=== PATIENT | male | born 1950 | race Caucasian/White ===

== ENCOUNTER 2018-02-22 08:12 | Day surgery (SDC) | payer BC, MEDICARE, SELFPAY ==
--- NOTE | 2018-02-22 | HEM_PTH ---
PATIENT: JEFFREY CHAUDHARY LOC: [facility] [place] U#:[id number] AGE/SX: 67/M ROOM: RE02/22/[address]: Dr. Jennifer Arrieta MD : 1950 BED: DIS: 02/22/2018 SPEC #: [id number] RECD: 02/22/18 15:14 STATUS: JESSICA RETamir #: [id number] ASHLIE: 02/22/18 00:[address]: Jennifer Arrieta DEPT: SURGICAL PATHOLOGY RECD BY: Raúl Harris ENTERED: 02/22/18 15:14 SP TYPE: HEMORRHOID OTHR DR: Dr. Sera Morris MD Tissues: HEMORRHOIDS Procedures: Surgery Specimen Level III HEADER OPERATION: Hemorrhoidectomy PRE-OP DIAGNOSIS: Grade 3 hemorrhoids TISSUE SUBMITTED: Internal and external hemorrhoids MICROSCOPIC DIAGNOSIS Internal and external hemorrhoids: Pieces of squamous mucosa with dilated and congested blood vessels, consistent with hemorrhoids with focal thrombosis and recanalization. SJ:carlos 02/23/18 MICROSCOPIC DESCRIPTION Slides are reviewed. GROSS DESCRIPTION Received in fixative is one container labeled with the patient's name and designated internal and external hemorrhoids. The specimen consists of multiple variable sized pieces of huang mucosal tissue measuring in aggregate 3 x 2.5 x 0.3 cm. The largest piece is bisected. The entire specimen is submitted in one cassette. / KERMIT:carlos 02/22/18 TC:5 CPT: 51248
[2018-02-22 08:47] VITALS: BP 148/75; PULSE 60; RESP 18; TEMP 37; O2SAT 100; BMI 30.2
[2018-02-22] MEDS: Cefazolin 2 GM in 0.9% Normal Saline 100 ML IV (11:17)
[2018-02-22] MEDS: Lubricating Jelly 60 GM Tube 30 GM TOPICAL (11:40)
[2018-02-22] MEDS: Dibucaine 30 GM Tube 1 APPLIC (12:20)
[2018-02-22] MEDS: Bupiv/Epi 0.5% Mpf 30 ML Vial (12:20)
--- NOTE | 2018-02-22 12:31 | OP.PN_ITS ---
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
--- NOTE | 2018-02-22 12:32 | OP.PCM_ITS ---
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 Appropriate time out protocol was followed. He was then intubated by the anesthesia provider. He was then carefully placed in the prone derick-knife position with appropriate padding. Adhesive tape was applied to the buttocks to retract the buttocks laterally to aid in exposure. A sterile surgical skin prep was then done. Sterile surgical drapes were placed. The rectum was irrigated with a dilute betadyne solution. The skin and subcutaneous tissues all around the anal area was infiltrated (the perianal skin and mucosa) with lidocaine 1% with epinephrine. Gentle finger dilatation of the anal canal was done. An anal speculum was inserted into the anal canal. The area was inspected. Patient was noted to have grade 4 internal hemorrhoids extending to external hemorrhoids. The left lateral prolapsed hemorrhoid was grasped with an Allis clamp and retracted toward the center of the anal canal. A 2-0 chromic suture in a figure-eight manner was placed proximally, above the pedicle first to decrease blood loss. An elliptical incision with a 15 blade scalpel was then made from the external component of the hemorrhoid group to the proximal end of the clamp. The tissue was then excised the hemorrhoid with scissors. The internal sphincter muscle was carefully avoided in this dissection. Hemostasis beneath the mucosa was carefully controlled with electrocoagulation. The mucosa was then reapproximated radially using locking running suture with the chromic gut. The right lateral hemorrhoidal bundle was approached in the same fashion as above. A thrombin gel foam with dubicaine cream was rolled up and placed into the anal canal. Patient was then placed back in the supine position. He was extubated and brought to the Recovery Room in stable condition. - Complications none noted - Admit VTE Documentation VTE Present on Admission: Yes VTE Mechan Device Prophylaxis: SCD's
--- NOTE | 2018-02-22 12:34 | DCINST_ITS ---
Discharge Diet: No Restrictions Discharge Activity: Return to Normal Activity, May not drive while taking narcotic pain medications. Allergies/Adverse Reactions: Allergies No Known Allergies Allergy (Verified 02/21/18 16:05) Medications to take at Discharge Acyclovir [Zovirax] 400 mg PO DAILY 02/21/18 Atorvastatin Calcium [Lipitor] 20 mg PO QHS 02/21/18 Dasatinib [Sprycel] 100 mg PO DAILY 02/21/18 Iron Carbonyl [Feosol] 648 mg PO DAILYCM 02/21/18 Losartan Potassium [Cozaar] 25 mg PO DAILY 02/21/18 Primary Care Physician: eSra Morris MD [Primary Care Provider] - Test Results: Test results from this visit will be discussed in further detail at your follow- up appointment, if applicable. Please Follow Up With: Jennifer Arrieta MD - call When: to be seen in 2-3 weeks, please call office for date and time, thank you
[2018-02-22 12:41] VITALS: BP 148/75; BP 154/90; PULSE 62; RESP 16; TEMP 36.3; O2SAT 93
[2018-02-22 12:45] VITALS: BP 141/85; BP 148/75; PULSE 58; RESP 16; O2SAT 94
[2018-02-22 13:00] VITALS: BP 148/75; BP 164/84; PULSE 56; RESP 16; TEMP 36.6; O2SAT 98
[2018-02-22 15:00] VITALS: BP 148/75; BP 180/90; PULSE 75; RESP 16; TEMP 36.6; O2SAT 99
--- OUTSIDE RECORDS SUMMARY | 2018-04-10 03:21 | XMS RPT_ITS ---
:1950 Author Organization OHIP Care Team Providers Name Role Phone Jennifer Arrieta Attending Unavailable Jennifer Arrieta Referring Unavailable Lucas Barnett Primary Care Unavailable JENNIFER ARRIETA Admitting Unavailable JENNIFER ARRIETA Attending Unavailable Lucas Barnett Attending Unavailable Lucas Barnett Primary Care Unavailable Lucas Barnett Admitting Unavailable Lucas Barnett Attending Unavailable Lucas Barnett Primary Care Unavailable Lucas Barnett Primary Care Unavailable Gayla Scott Admitting Unavailable Gayla Scott Attending Unavailable Lucas Barnett Attending Unavailable Lucas Barnett Primary Care Unavailable Lucas Barnett Admitting Unavailable Lucas Barnett Attending Unavailable Lucas Barnett Primary Care Unavailable Lucas Barnett Admitting Unavailable JENNIFER ARRIETA Attending Unavailable LUCAS BARNETT Referring Unavailable JENNIFER ARRIETA Attending Unavailable LUCAS BARNETT Referring Unavailable JIMMY BORJAS (OD) Attending Unavailable JIMMY BORJAS (OD) Referring Unavailable OK MÉNDEZ Attending Unavailable OK MÉNDEZ Referring Unavailable OK MÉNDEZ Referring Unavailable JIMMY BORJAS (OD) Attending Unavailable PROBLEMS PROBLEMS DATE TYPE CONDITION / CODE ATTENDING STATUS SOURCE 02/22/2018 Unknown Z09 - Encounter Jennifer Arrieta Active [place] for follow-up Community examination after Hospital completed Repository treatment for conditions other than malignant neoplasm / Z09(ICD-10) 02/10/2018 Active Unspecified JENNIFER ARRIETA Active [facility] hemorrhoids / NEW Other [place] K64.9(ICD-10) Repository 10/14/2017 Active Unknown / OK MÉNDEZ Active [facility] UNK(Unknown) Main [place] Repository 09/26/2015 Active Chronic myeloid NA [facility] in remission / C92.11(ICD-10) PROCEDURES PROCEDURES No Procedure Records FoundRESULTS RESULTS OPERATIVE REPORT Observed: 02/25/2018 Status: F Source: [place] 5:48 PM [facility] REPOSITORY [facility] Medical Records Department [address] [place] [address] Operative Report 02/22/18 1231 MR#: [id number] Acct: [id number] Name: JEFFREY ARIAS Rep #: [id number] : 1950 67 From: Jennifer Arrieta MD PCP: Lucas Barnett MD Status: [place] [facility] [place] [facility] [place] of Operation Date of Procedure: 02/22/18 Pre-Operative Diagnosis: hemorrhoidal disease Post-Operative Diagnosis: same Surgery/Procedure Performed:: excisional hemorrhoidectomy - internal and external hemorrhoids Description of Surgical Findings:: grade 3-4 internal hemorrhoids with external hemorrhoidal tags woods manager: NOT,DEFINED Type of Anesthesia:: General Anesthesiologist: Pavan Salgado Specimen's removed: external and internal hemorrhoidal tissue - two bundles Estimated Blood Loss (mL): 10 ml Fluids Replaced: 1200 ml RL Description of Procedure: After informed consent was given, the patient was brought to the operating room and placed in the supine position. Appropriate time out protocol was followed. He was then intubated by the anesthesia provider. He was then carefully placed in the prone derick-knife position with appropriate padding. Adhesive tape was applied to the buttocks to retract the buttocks laterally to aid in exposure. A sterile surgical skin prep was then done. Sterile surgical drapes were placed. The rectum was irrigated with a dilute betadyne solution. The skin and subcutaneous tissues all around the anal area was infiltrated (the perianal skin and mucosa) with lidocaine 1% with epinephrine. Gentle finger dilatation of the anal canal was done. An anal speculum was inserted into the anal canal. The area was inspected. Patient was noted to have grade 4 internal hemorrhoids extending to external hemorrhoids. The left lateral prolapsed hemorrhoid was grasped with an Allis clamp and retracted toward the center of the anal canal. A 2-0 chromic suture in a figure-eight manner was placed proximally, above the pedicle first to decrease blood loss. An elliptical incision with a 15 blade scalpel was then made from the external component of the hemorrhoid group to the proximal end of the clamp. The tissue was then excised the hemorrhoid with scissors. The internal sphincter muscle was carefully avoided in this dissection. Hemostasis beneath the mucosa was carefully controlled with electrocoagulation. The mucosa was then reapproximated radially using locking running suture with the chromic gut. The right lateral hemorrhoidal bundle was approached in the same fashion as above. A thrombin gel foam with dubicaine cream was rolled up and placed into the anal canal. Patient was then placed back in the supine position. He was extubated and brought to the Recovery Room in stable condition. - Complications none noted - Admit VTE Documentation VTE Present on Admission: Yes VTE Mechan Device Prophylaxis: SCD's 02/25/18 174 <Electronically signed by Jennifer Arrieta MD> Date Jennifer Arrieta MD CC: Lucas Barnett MD; Jennifer Arrieta MD Signed DISCHARGE INSTRUCTION Observed: 02/25/2018 Status: F Source: [place] 5:31 PM [facility] REPOSITORY [facility] Medical Records Department [address] [place] [address] Instructions for Home/Discharge Instructions 02/22/18 1233 MR#: [id number] Acct: [id number] Name: JEFFREY ARIAS Rep #: [id number] : 1950 67 From: Jennifer Arrieta MD PCP: Lucas Barnett MD Status[place] [facility] [place] Diet: No Restrictions Discharge Activity: Return to Normal Activity, May not drive while taking narcotic pain medications. Allergies/Adverse Reactions: Allergies No Known Allergies Allergy (Verified 02/21/18 16:05) Medications to take at Discharge Acyclovir [Zovirax] 400 mg PO DAILY 02/21/18 Atorvastatin Calcium [Lipitor] 20 mg PO QHS 02/21/18 Dasatinib [Sprycel] 100 mg PO DAILY 02/21/18 Iron Carbonyl [Feosol] 648 mg PO DAILYCM 02/21/18 Losartan Potassium [Cozaar] 25 mg PO DAILY 02/21/18 Primary Care Physician: Lucas Barnett MD [Primary Care Provider] - Test Results: Test results from this visit will be discussed in further detail at your follow-up appointment, if applicable. Please Follow Up With: Jennifer Arrieta MD - call When: to be seen in 2-3 weeks, please call office for date and time, thank you 02/25/18 5144 <Electronically signed by Jennifer Arrieta MD> Date Jennifer Arrieta MD CC: Lucas Barnett MD HEMORRHOIDS Observed: 02/22/2018 Status: F Source: [place] 12:00 AM [facility] REPOSITORY Patient: JEFFREY ARIAS : 1950 (67/M) Acct Num: [id number] Phys: Jennifer Arrieta MD Unit Num: [id number] [place] [facility] Specimen: [id number] Received: 02/22/18 1514 Spec Type: HEMORRHOID TISSUES 1 TISSUES: HEMORRHOIDS GROSS DESCRIPTION Received in fixative is one container labeled with the patient's name and designated internal and external hemorrhoids. The specimen consists of multiple variable sized pieces of huang mucosal tissue measuring in aggregate 3 x 2.5 x 0.3 cm. The largest piece is bisected. The entire specimen is submitted in one cassette. / KERMIT:carlos 02/22/18 TC:5 CPT: 47962 HEADER OPERATION: Hemorrhoidectomy PRE-OP DIAGNOSIS: Grade 3 hemorrhoids TISSUE SUBMITTED: Internal and external hemorrhoids MICROSCOPIC DESCRIPTION Slides are reviewed. MICROSCOPIC DIAGNOSIS Internal and external hemorrhoids: Pieces of squamous mucosa with dilated and congested blood vessels, consistent with hemorrhoids with focal thrombosis and recanalization. SJ:carlos 02/23/18 Signed You Coronado 02/23/18 <signature on file> Performed By: #### PHEM #### [facility] [address] [place], [place] [address]willem [place], [address] HISTORY PHYSICAL Observed: 02/20/2018 Status: COMPLETED Source: [place] 6:38 PM [facility] REPOSITORY O ID: [id number] Author: Jennifer Arrieta Service: (none) Author Type: Physician Type: HANDP Filed: 02/20/2018 6:38 PM Note Text: Jeffrey Hancock Hugo García 1950 ? ? REFERRING PHYSICIAN: Lucas Barnett MD ? CHIEF COMPLAINT: Consult (Consult Hemorrhoids) ? HPI: The patient is a 67 year old male with a complaint of hemorrhoids. Symptoms are - bleeding with bowel movements, pain and itching in the area, protrusion of tissue/possible prolapse also, and painful bowel movements. Notes that sometimes stools are hard, also admits to straining with bowel movements. Had previous colonoscopy 3 years ago - essentially normal except for findings of hemorrhoidal disease. The patient has also a concern for anemia - hgb was 11 Denies previous hemorrhoidal procedures. ? ? PAST MEDICAL HISTORY Diagnosis Date - Anemia ? - CML (chronic myeloid leukemia) (HCC) ? - HTN (hypertension) ? - Kidney stones ? ? PAST SURGICAL HISTORY Procedure Laterality Date - COLONOSCOPY ? 12 yrs - CYSTOSCOPY ? ? - HERNIA REPAIR HX ? 1984 ? ? Current Outpatient Prescriptions: acyclovir (ZOVIRAX) 400 mg tablet Take 1 tablet by mouth once daily. SPRYCEL 100 mg tablet TAKE 1 TABLET DAILY atorvastatin (LIPITOR) 20 mg tablet Take 20 mg by mouth once daily. ferrous sulfate (FEROSUL) 325 mg (65 mg iron) tablet Take 1 tablet by mouth daily with breakfast. valsartan (DIOVAN) 80 mg tablet Take 80 mg by mouth once daily. acetaminophen (TYLENOL EX STR RAPID RELEASE) 500 mg tablet Take 500 mg by mouth every 8 hours as needed. ? ? ALLERGIES: Patient has no known allergies. ? PERSONAL HISTORY: Social History Marital status: Spouse name: Years of education: Number of children: Social History Main Topics Smoking status: Never Smoker Smokeless tobacco: Never Used Alcohol use: Yes Comment: Occasionally Drug use: No Sexual activity: Yes Partners with: Female ? FAMILY HISTORY Problem Relation Age of Onset - Alcohol/Drug Father ? - Cancer Father ? ? lung - Heart Father 69 ? Heart Attack - Hypertension Father ? - Diabetes Father ? - No Ocular Disease Father ? - Kidney Disease Brother ? - Hypertension Paternal Grandfather ? - Diabetes Mother ? - No Ocular Disease Mother ? ? ? REVIEW OF SYSTEMS: General - denies fevers Cardiovascular - denies chest pain Pulmonary - denies coughing up blood Gastrointestinal - as per HPI Neurological - denies seizures Genitourinary - denies blood in urine Hematological - denies spontaneous/prolonged bleeding Skin - denies nonhealing skin wounds Musculoskeletal - no new symptoms of joint/back pain Endocrine - denies diabetes Psychological ? denies hallucinations ? PHYSICAL EXAMINATION: General: The patient is 67 year old male, well nourished, well hydrated in no acute distress. The patient is oriented to time, place, and person. VITALS: Ht: 6' Wt: 240# Head ? Normocephalic. EOM intact with sclera clear and no icterus noted. Mouth with mucus membranes moist. Neck - supple with no jugular venous distention noted. Trachea is midline. Lungs ? clear to auscultation. Normal breath sounds. No rales/rhonchi/wheezing noted. No labored breathing noted, such as retractions. . Heart ? normal S1 and S2 auscultated. No rubs/clicks/murmurs noted. Regular rate. Abdomen ? soft and benign. Normal bowel sounds. No abdominal bruits noted. Difficult to determine if any masses or organomegaly due to body habitus. Extremities ? no pitting edema noted. Rectal ? normal perianal skin, external and internal hemorhoidal disease, normal sphincter tone, no masses noted in rectal vault Skin ? normal skin integrity. Neurological ? gait normal, no focal deficits noted Psych ? calm and appropriate ? IMPRESSION: hemorrhoidal disease, blood in stools, perianal pain ? PLAN: I have discussed the above with the patient and his who is present with him. I have offered options of the following: excisional hemorrhoidectomy versus internal hemorrhoidal banding versus continued observation. I have explained the procedures to the patient. I have counseled the patient as to the risks of the procedure, including but not limited to: infection, bleeding, injury to any blood vessels/nerves, scar tissue, continued pain, regrowth of hemorhroidal tissue due to disease (straining with bowel movements, constipation, etc.), wound infections, complications of anesthesia, etc. ? the patient understands. I have explained to the patient that hemorrhoidal surgery can result in significant postoperative pain and discomfort. I have explained that due to the disease itself, he can have recurrence of hemorrhoids. I have explained that external hemorrhoidectomy is not complete - because of circumferential disease - cannot risk circumferential stricture. I have recommended conservative measures - avoid straining with bowel movements, increased intake of water and fiber to decrease risk of hard stools, etc. The patient wishes to proceed.? I have answered all questions to the patient?s satisfaction and the patient has no further questions PROGRESS Observed: 02/16/2018 Status: COMPLETED Source: [place] 4:55 PM [facility] REPOSITORY HNO ID: [id number] Author: Jennifer Arrieta Service: (none) Author Type: Physician Type: Progress Notes Filed: 02/18/2018 3:19 PM Note Text: Jeffrey Arias 1950 REFERRING PHYSICIAN: Lucas Barnett MD CHIEF COMPLAINT: Consult (Consult Hemorrhoids) HPI: Mr. Arias is a 67 y/o WM who presents for further questions regarding his upcoming hemorrhoidectomy surgery. Wants to know if banding will be done Wants to know about pain meds Wants to know about bleeding Wants to know how long is surgery Wants to know about mineral oil Wants to know about diet after I have answered all his questions and he has no further questions. PAST MEDICAL HISTORY - Anemia - CML (chronic myeloid leukemia) (HCC) - HTN (hypertension) - Kidney stones PAST SURGICAL HISTORY - COLONOSCOPY 12 yrs - CYSTOSCOPY - HERNIA REPAIR HX 1984 Current Outpatient Prescriptions: acyclovir (ZOVIRAX) 400 mg tablet Take 1 tablet by mouth once daily. SPRYCEL 100 mg tablet TAKE 1 TABLET DAILY atorvastatin (LIPITOR) 20 mg tablet Take 20 mg by mouth once daily. ferrous sulfate (FEROSUL) 325 mg (65 mg iron) tablet Take 1 tablet by mouth daily with breakfast. valsartan (DIOVAN) 80 mg tablet Take 80 mg by mouth once daily. acetaminophen (TYLENOL EX STR RAPID RELEASE) 500 mg tablet Take 500 mg by mouth every 8 hours as needed. ALLERGIES: Patient has no known allergies. PERSONAL HISTORY: Social History Marital status: Spouse name: Years of education: Number of children: Social History Main Topics Smoking status: Never Smoker Smokeless tobacco: Never Used Alcohol use: Yes Comment: Occasionally Drug use: No Sexual activity: Yes Partners with: Female FAMILY HISTORY - Alcohol/Drug Father - Cancer Father lung - Heart Father 69 Heart Attack - Hypertension Father - Diabetes Father - No Ocular Disease Father - Kidney Disease Brother - Hypertension Paternal Grandfather - Diabetes Mother - No Ocular Disease Mother REVIEW OF SYSTEMS: General - denies fevers Cardiovascular - denies chest pain Pulmonary - denies coughing up blood Gastrointestinal - as per HPI Neurological - denies seizures Genitourinary - denies blood in urine Hematological - denies spontaneous/prolonged bleeding Skin - denies nonhealing skin wounds Musculoskeletal - no new symptoms of joint/back pain Endocrine - denies diabetes Psychological ? denies hallucinations PHYSICAL EXAMINATION: General: The patient is 67 year old male, well nourished, well hydrated in no acute distress. The patient is oriented to time, place, and person. VITALS: Ht: 6' Wt: 240# Head ? Normocephalic. Neck - supple with no jugular venous distention noted. Trachea is midline. Lungs ? no labored breathing noted, such as retractions. . Psych ? calm and appropriate IMPRESSION: hemorrhoidal disease, blood in stools, perianal pain PLAN: I have discussed the above with the patient and his who is present with him. I have answered all their questions and they have no further questions. Patient scheduled for surgery on February 21. The patient wishes to proceed with excisional hemorrhoidectomy. I have explained the risks of surgery including but not limited to: infection, bleeding, scar tissue, postoperative pain, persistence of external hemorrhoidal tags, recurrence of hemorrhoidal tissue, etc. - he understands. He agrees to proceed. CNOV Observed: 02/16/2018 Status: COMPLETED Source: [place] 4:00 PM [facility] REPOSITORY Office Visit (GENSWS) JEFFREY ARIAS JR. ([id number]) 1950 Cris Date Time Provider Department 02/16/18 4:00 PM JENNIFER ARRIETA During your visit today, we recorded the following information about you: Jennifer Arrieta MD 02/18/2018 3:19 PM Signed Jeffrey Arias Jr. 1950 REFERRING PHYSICIAN: Lucas Barnett MD CHIEF COMPLAINT: Consult (Consult Hemorrhoids) HPI: Mr. Arias is a 67 y/o WM who presents for further questions regarding his upcoming hemorrhoidectomy surgery. Wants to know if banding will be done Wants to know about pain meds Wants to know about bleeding Wants to know how long is surgery Wants to know about mineral oil Wants to know about diet after I have answered all his questions and he has no further questions. PAST MEDICAL HISTORY - Anemia - CML (chronic myeloid leukemia) (HCC) - HTN (hypertension) - Kidney stones PAST SURGICAL HISTORY - COLONOSCOPY 12 yrs - CYSTOSCOPY - HERNIA REPAIR HX 1984 Current Outpatient Prescriptions: acyclovir (ZOVIRAX) 400 mg tablet Take 1 tablet by mouth once daily. SPRYCEL 100 mg tablet TAKE 1 TABLET DAILY atorvastatin (LIPITOR) 20 mg tablet Take 20 mg by mouth once daily. ferrous sulfate (FEROSUL) 325 mg (65 mg iron) tablet Take 1 tablet by mouth daily with breakfast. valsartan (DIOVAN) 80 mg tablet Take 80 mg by mouth once daily. acetaminophen (TYLENOL EX STR RAPID RELEASE) 500 mg tablet Take 500 mg by mouth every 8 hours as needed. ALLERGIES: Patient has no known allergies. PERSONAL HISTORY: Social History Marital status: Spouse name: Years of education: Number of children: Social History Main Topics Smoking status: Never Smoker Smokeless tobacco: Never Used Alcohol use: Yes Comment: Occasionally Drug use: No Sexual activity: Yes Partners with: Female FAMILY HISTORY - Alcohol/Drug Father - Cancer Father lung - Heart Father 69 Heart Attack - Hypertension Father - Diabetes Father - No Ocular Disease Father - Kidney Disease Brother - Hypertension Paternal Grandfather - Diabetes Mother - No Ocular Disease Mother REVIEW OF SYSTEMS: General - denies fevers Cardiovascular - denies chest pain Pulmonary - denies coughing up blood Gastrointestinal - as per HPI Neurological - denies seizures Genitourinary - denies blood in urine Hematological - denies spontaneous/prolonged bleeding Skin - denies nonhealing skin wounds Musculoskeletal - no new symptoms of joint/back pain Endocrine - denies diabetes Psychological ? denies hallucinations PHYSICAL EXAMINATION: General: The patient is 67 year old male, well nourished, well hydrated in no acute distress. The patient is oriented to time, place, and person. VITALS: Ht: 6' Wt: 240# Head ? Normocephalic. Neck - supple with no jugular venous distention noted. Trachea is midline. Lungs ? no labored breathing noted, such as retractions. . Psych ? calm and appropriate IMPRESSION: hemorrhoidal disease, blood in stools, perianal pain PLAN: I have discussed the above with the patient and his who is present with him. I have answered all their questions and they have no further questions. Patient scheduled for surgery on February 21. The patient wishes to proceed with excisional hemorrhoidectomy. I have explained the risks of surgery including but not limited to: infection, bleeding, scar tissue, postoperative pain, persistence of external hemorrhoidal tags, recurrence of hemorrhoidal tissue, etc. - he understands. He agrees to proceed. Referring Provider: LUCAS BARNETT [[id number]] Allergies As of Date: 02/16/2018 (No Known Allergies) Date Reviewed: 02/16/2018 Reviewed by: Ambika Lockhart LPN - Fully Assessed Reason for Visit: questions regarding surgery [Other] Primary Visit Diagnosis:Grade III hemorrhoids [K64.2] Other Visit Diagnosis:External hemorrhoid [K64.4] Prescriptions as of 02/16/2018 Sig: ACYCLOVIR 400 MG TABLET Take 1 tablet by mouth once d* SPRYCEL 100 MG TABLET TAKE 1 TABLET DAILY ATORVASTATIN 20 MG TABLET Take 20 mg by mouth once nael* FERROUS SULFATE 325 MG (65 MG* Take 1 tablet by mouth daily * VALSARTAN 80 MG TABLET Take 80 mg by mouth once nael* ACETAMINOPHEN 500 MG TABLET Take 500 mg by mouth every 8 * Problem List As Of Date 02/16/2018 Noted Resolved CML (chronic myelocytic leukemia) (HCC) [C92.10]INVALID FOR* Leukocytosis, unspecified [D72.829] INVALID FOR*12/13/2013 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 Encounter Status:Closed by MD JENNIFER ARRIETA on 02/18/18 HOSP Observed: 02/10/2018 Status: COMPLETED Source: [place] 12:00 AM [facility] REPOSITORY Patient:Jeffrey Arias Jr. MRN: <[id number]> Height:5' 10.276(1.785 m) Weight:No patient weight recorded within the last 30 days. Outpatient Medications as of 02/21/18: acetaminophen (TYLENOL EX STR RAPID RELEASE) 500 mg tablet acyclovir (ZOVIRAX) 400 mg tablet atorvastatin (LIPITOR) 20 mg tablet ferrous sulfate (FEROSUL) 325 mg (65 mg iron) tablet SPRYCEL 100 mg tablet valsartan (DIOVAN) 80 mg tablet Admission/Clinic Administered Medications as of 02/21/18: Patient has no admission medications. 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 1950 REFERRING PHYSICIAN: Lucas Barnett MD CHIEF COMPLAINT: Consult (Consult Hemorrhoids) HPI: Mr. Arias is a 67 y/o WM who presents for further questions regarding his upcoming hemorrhoidectomy surgery. Wants to know if banding will be done Wants to know about pain meds Wants to know about bleeding Wants to know how long is surgery Wants to know about mineral oil Wants to know about diet after I have answered all his questions and he has no further questions. PAST MEDICAL HISTORY - Anemia - CML (chronic myeloid leukemia) (HCC) - HTN (hypertension) - Kidney stones PAST SURGICAL HISTORY - COLONOSCOPY 14 yrs - CYSTOSCOPY - HERNIA REPAIR HX 1984 Current Outpatient Prescriptions: acyclovir (ZOVIRAX) 400 mg tablet Take 1 tablet by mouth once daily. SPRYCEL 100 mg tablet TAKE 1 TABLET DAILY atorvastatin (LIPITOR) 20 mg tablet Take 20 mg by mouth once daily. ferrous sulfate (FEROSUL) 325 mg (65 mg iron) tablet Take 1 tablet by mouth daily with breakfast. valsartan (DIOVAN) 80 mg tablet Take 80 mg by mouth once daily. acetaminophen (TYLENOL EX STR RAPID RELEASE) 500 mg tablet Take 500 mg by mouth every 8 hours as needed. ALLERGIES: Patient has no known allergies. PERSONAL HISTORY: Social History Marital status: Spouse name: Years of education: Number of children: Social History Main Topics Smoking status: Never Smoker Smokeless tobacco: Never Used Alcohol use: Yes Comment: Occasionally Drug use: No Sexual activity: Yes Partners with: Female FAMILY HISTORY - Alcohol/Drug Father - Cancer Father lung - Heart Father 69 Heart Attack - Hypertension Father - Diabetes Father - No Ocular Disease Father - Kidney Disease Brother - Hypertension Paternal Grandfather - Diabetes Mother - No Ocular Disease Mother REVIEW OF SYSTEMS: General - denies fevers Cardiovascular - denies chest pain Pulmonary - denies coughing up blood Gastrointestinal - as per HPI Neurological - denies seizures Genitourinary - denies blood in urine Hematological - denies spontaneous/prolonged bleeding Skin - denies nonhealing skin wounds Musculoskeletal - no new symptoms of joint/back pain Endocrine - denies diabetes Psychological ? denies hallucinations PHYSICAL EXAMINATION: General: The patient is 67 year old male, well nourished, well hydrated in no acute distress. The patient is oriented to time, place, and person. VITALS: Ht: 6' Wt: 240# Head ? Normocephalic. Neck - supple with no jugular venous distention noted. Trachea is midline. Lungs ? no labored breathing noted, such as retractions. . Psych ? calm and appropriate IMPRESSION: hemorrhoidal disease, blood in stools, perianal pain PLAN: I have discussed the above with the patient and his who is present with him. I have answered all their questions and they have no further questions. Patient scheduled for surgery on February 21. The patient wishes to proceed with excisional hemorrhoidectomy. I have explained the risks of surgery including but not limited to: infection, bleeding, scar tissue, postoperative pain, persistence of external hemorrhoidal tags, recurrence of hemorrhoidal tissue, etc. - he understands. He agrees to proceed. Progress Notes ([facility]): Alta Zaida 02/14/2018 4:21 PM Signed Patient is having a procedure with Dr Arrieta on 02/21/2018 and is questioning if he needs to stop his Sprycel. Please advise spouse at home number. Ok Méndez MD 02/14/2018 4:29 PM Signed YES. Stop Sprycel a week before surgery, resume after surgery. MD Tracy Bello LPN, GRICEL 02/14/2018 4:45 PM Signed notified to stop sprycel 1 week prior to surgery, and resume after surgery .Tracy Guerra LPN PROGRESS Observed: 02/03/2018 Status: COMPLETED Source: [place] 11:49 AM [facility] REPOSITORY HNO ID: [id number] Author: Jennifer Arrieta Service: (none) Author Type: Physician Type: Progress Notes Filed: 02/03/2018 3:14 PM Note Text: Jeffrey Arias Jr. 1950 REFERRING PHYSICIAN: Lucas Barnett MD CHIEF COMPLAINT: Consult (Consult Hemorrhoids) HPI: The patient is a 67 year old male with a complaint of hemorrhoids. Symptoms are - bleeding with bowel movements, pain and itching in the area, protrusion of tissue/possible prolapse also, and painful bowel movements. Notes that sometimes stools are hard, also admits to straining with bowel movements. Had previous colonoscopy 3 years ago - essentially normal except for findings of hemorrhoidal disease. The patient has also a concern for anemia - hgb was 11 Denies previous hemorrhoidal procedures. PAST MEDICAL HISTORY Diagnosis Date - Anemia - CML (chronic myeloid leukemia) (HCC) - HTN (hypertension) - Kidney stones PAST SURGICAL HISTORY Procedure Laterality Date - COLONOSCOPY 14 yrs - CYSTOSCOPY - HERNIA REPAIR HX 1984 Current Outpatient Prescriptions: acyclovir (ZOVIRAX) 400 mg tablet Take 1 tablet by mouth once daily. SPRYCEL 100 mg tablet TAKE 1 TABLET DAILY atorvastatin (LIPITOR) 20 mg tablet Take 20 mg by mouth once daily. ferrous sulfate (FEROSUL) 325 mg (65 mg iron) tablet Take 1 tablet by mouth daily with breakfast. valsartan (DIOVAN) 80 mg tablet Take 80 mg by mouth once daily. acetaminophen (TYLENOL EX STR RAPID RELEASE) 500 mg tablet Take 500 mg by mouth every 8 hours as needed. ALLERGIES: Patient has no known allergies. PERSONAL HISTORY: Social History Marital status: Spouse name: Years of education: Number of children: Social History Main Topics Smoking status: Never Smoker Smokeless tobacco: Never Used Alcohol use: Yes Comment: Occasionally Drug use: No Sexual activity: Yes Partners with: Female FAMILY HISTORY Problem Relation Age of Onset - Alcohol/Drug Father - Cancer Father lung - Heart Father 69 Heart Attack - Hypertension Father - Diabetes Father - No Ocular Disease Father - Kidney Disease Brother - Hypertension Paternal Grandfather - Diabetes Mother - No Ocular Disease Mother REVIEW OF SYSTEMS: General - denies fevers Cardiovascular - denies chest pain Pulmonary - denies coughing up blood Gastrointestinal - as per HPI Neurological - denies seizures Genitourinary - denies blood in urine Hematological - denies spontaneous/prolonged bleeding Skin - denies nonhealing skin wounds Musculoskeletal - no new symptoms of joint/back pain Endocrine - denies diabetes Psychological ? denies hallucinations PHYSICAL EXAMINATION: General: The patient is 67 year old male, well nourished, well hydrated in no acute distress. The patient is oriented to time, place, and person. VITALS: Ht: 6' Wt: 240# Head ? Normocephalic. EOM intact with sclera clear and no icterus noted. Mouth with mucus membranes moist. Neck - supple with no jugular venous distention noted. Trachea is midline. Lungs ? clear to auscultation. Normal breath sounds. No rales/rhonchi/wheezing noted. No labored breathing noted, such as retractions. . Heart ? normal S1 and S2 auscultated. No rubs/clicks/murmurs noted. Regular rate. Abdomen ? soft and benign. Normal bowel sounds. No abdominal bruits noted. Difficult to determine if any masses or organomegaly due to body habitus. Extremities ? no pitting edema noted. Rectal ? normal perianal skin, external and internal hemorhoidal disease, normal sphincter tone, no masses noted in rectal vault Skin ? normal skin integrity. Neurological ? gait normal, no focal deficits noted Psych ? calm and appropriate Assessment IMPRESSION: hemorrhoidal disease, blood in stools, perianal pain PLAN: I have discussed the above with the patient and his who is present with him. I have offered options of the following: excisional hemorrhoidectomy versus internal hemorrhoidal banding versus continued observation. I have explained the procedures to the patient. I have counseled the patient as to the risks of the procedure, including but not limited to: infection, bleeding, injury to any blood vessels/nerves, scar tissue, continued pain, regrowth of hemorhroidal tissue due to disease (straining with bowel movements, constipation, etc.), wound infections, complications of anesthesia, etc. ? the patient understands. I have explained to the patient that hemorrhoidal surgery can result in significant postoperative pain and discomfort. I have explained that due to the disease itself, he can have recurrence of hemorrhoids. I have explained that external hemorrhoidectomy is not complete - because of circumferential disease - cannot risk circumferential stricture. I have recommended conservative measures - avoid straining with bowel movements, increased intake of water and fiber to decrease risk of hard stools, etc. The patient wishes to think about his options. I have answered all questions to the patient?s satisfaction and the patient has no further questions. . Diagnoses: (K62.89) Perianal pain (primary encounter diagnosis) (K62.5) Hemorrhage of anus and rectum (K64.2) Grade III hemorrhoids Return to Clinic: The patient is instructed to follow-up with me as per needed. Jennifer Arrieta MD CNOV Observed: 02/03/2018 Status: COMPLETED Source: [place] 9:30 AM [facility] REPOSITORY Office Visit (SWS) JEFFREY ARIAS JR. ([id number]) 1950 Cris Date Time Provider Department 02/03/18 9:30 AM JENNIFER ARRIETA During your visit today, we recorded the following information about you: Jennifer Arrieta MD 02/03/2018 3:14 PM Signed Jeffrey Arias 1950 REFERRING PHYSICIAN: Lucas Barnett MD CHIEF COMPLAINT: Consult (Consult Hemorrhoids) HPI: The patient is a 67 year old male with a complaint of hemorrhoids. Symptoms are - bleeding with bowel movements, pain and itching in the area, protrusion of tissue/possible prolapse also, and painful bowel movements. Notes that sometimes stools are hard, also admits to straining with bowel movements. Had previous colonoscopy 3 years ago - essentially normal except for findings of hemorrhoidal disease. The patient has also a concern for anemia - hgb was 11 Denies previous hemorrhoidal procedures. PAST MEDICAL HISTORY Diagnosis Date - Anemia - CML (chronic myeloid leukemia) (HCC) - HTN (hypertension) - Kidney stones PAST SURGICAL HISTORY Procedure Laterality Date - COLONOSCOPY 12 yrs - CYSTOSCOPY - HERNIA REPAIR HX 1984 Current Outpatient Prescriptions: acyclovir (ZOVIRAX) 400 mg tablet Take 1 tablet by mouth once daily. SPRYCEL 100 mg tablet TAKE 1 TABLET DAILY atorvastatin (LIPITOR) 20 mg tablet Take 20 mg by mouth once daily. ferrous sulfate (FEROSUL) 325 mg (65 mg iron) tablet Take 1 tablet by mouth daily with breakfast. valsartan (DIOVAN) 80 mg tablet Take 80 mg by mouth once daily. acetaminophen (TYLENOL EX STR RAPID RELEASE) 500 mg tablet Take 500 mg by mouth every 8 hours as needed. ALLERGIES: Patient has no known allergies. PERSONAL HISTORY: Social History Marital status: Spouse name: Years of education: Number of children: Social History Main Topics Smoking status: Never Smoker Smokeless tobacco: Never Used Alcohol use: Yes Comment: Occasionally Drug use: No Sexual activity: Yes Partners with: Female FAMILY HISTORY Problem Relation Age of Onset - Alcohol/Drug Father - Cancer Father lung - Heart Father 69 Heart Attack - Hypertension Father - Diabetes Father - No Ocular Disease Father - Kidney Disease Brother - Hypertension Paternal Grandfather - Diabetes Mother - No Ocular Disease Mother REVIEW OF SYSTEMS: General - denies fevers Cardiovascular - denies chest pain Pulmonary - denies coughing up blood Gastrointestinal - as per HPI Neurological - denies seizures Genitourinary - denies blood in urine Hematological - denies spontaneous/prolonged bleeding Skin - denies nonhealing skin wounds Musculoskeletal - no new symptoms of joint/back pain Endocrine - denies diabetes Psychological ? denies hallucinations PHYSICAL EXAMINATION: General: The patient is 67 year old male, well nourished, well hydrated in no acute distress. The patient is oriented to time, place, and person. VITALS: Ht: 6' Wt: 240# Head ? Normocephalic. EOM intact with sclera clear and no icterus noted. Mouth with mucus membranes moist. Neck - supple with no jugular venous distention noted. Trachea is midline. Lungs ? clear to auscultation. Normal breath sounds. No rales/rhonchi/wheezing noted. No labored breathing noted, such as retractions. . Heart ? normal S1 and S2 auscultated. No rubs/clicks/murmurs noted. Regular rate. Abdomen ? soft and benign. Normal bowel sounds. No abdominal bruits noted. Difficult to determine if any masses or organomegaly due to body habitus. Extremities ? no pitting edema noted. Rectal ? normal perianal skin, external and internal hemorhoidal disease, normal sphincter tone, no masses noted in rectal vault Skin ? normal skin integrity. Neurological ? gait normal, no focal deficits noted Psych ? calm and appropriate Assessment IMPRESSION: hemorrhoidal disease, blood in stools, perianal pain PLAN: I have discussed the above with the patient and his who is present with him. I have offered options of the following: excisional hemorrhoidectomy versus internal hemorrhoidal banding versus continued observation. I have explained the procedures to the patient. I have counseled the patient as to the risks of the procedure, including but not limited to: infection, bleeding, injury to any blood vessels/nerves, scar tissue, continued pain, regrowth of hemorhroidal tissue due to disease (straining with bowel movements, constipation, etc.), wound infections, complications of anesthesia, etc. ? the patient understands. I have explained to the patient that hemorrhoidal surgery can result in significant postoperative pain and discomfort. I have explained that due to the disease itself, he can have recurrence of hemorrhoids. I have explained that external hemorrhoidectomy is not complete - because of circumferential disease - cannot risk circumferential stricture. I have recommended conservative measures - avoid straining with bowel movements, increased intake of water and fiber to decrease risk of hard stools, etc. The patient wishes to think about his options. I have answered all questions to the patient?s satisfaction and the patient has no further questions. . Diagnoses: (K62.89) Perianal pain (primary encounter diagnosis) (K62.5) Hemorrhage of anus and rectum (K64.2) Grade III hemorrhoids Return to Clinic: The patient is instructed to follow-up with me as per needed. Jennifer Arrieta MD Referring Provider: LUCAS BARNETT [[id number]] Allergies As of Date: 02/03/2018 (No Known Allergies) Date Reviewed: 02/03/2018 Reviewed by: Jennifer Arrieta - Fully Assessed Reason for Visit: Consult [173] Cmt: Consult Hemorrhoids Primary Visit Diagnosis:Perianal pain [K62.89] Other Visit Diagnoses:Hemorrhage of anus and rectum [K62.5] Grade III hemorrhoids [K64.2] Prescriptions as of 02/03/2018 Sig: ACYCLOVIR 400 MG TABLET Take 1 tablet by mouth once d* SPRYCEL 100 MG TABLET TAKE 1 TABLET DAILY ATORVASTATIN 20 MG TABLET Take 20 mg by mouth once nael* FERROUS SULFATE 325 MG (65 MG* Take 1 tablet by mouth daily * VALSARTAN 80 MG TABLET Take 80 mg by mouth once nael* ACETAMINOPHEN 500 MG TABLET Take 500 mg by mouth every 8 * Problem List As Of Date 02/03/2018 Noted Resolved CML (chronic myelocytic leukemia) (HCC) [C92.10]INVALID FOR* Leukocytosis, unspecified [D72.829] INVALID FOR*12/13/2013 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] INVALID FOR* Combined forms of age-related cataract, bilater*INVALID FOR* Other vitreous opacities - Both Eyes [H43.399] INVALID FOR*04/21/2016 Vitreous floaters of both eyes [H43.393] INVALID FOR* History of herpes simplex keratoconjunctivitis *INVALID FOR* CML in remission (HCC) [C92.11] INVALID FOR* Anemia [D64.9] INVALID FOR* Encounter Status:Closed by MD JENNIFER ARRIETA on 02/03/18 PROGRESS Observed: 12/30/2017 Status: COMPLETED Source: [place] 10:36 AM [facility] REPOSITORY HNO ID: [id number] Author: Jimmy Borjas Service: (none) Author Type: ENCHILADA MAKER Type: Progress Notes Filed: 12/30/2017 10:38 AM Note Text: ASSESSMENT/PLAN: 1. History of herpes simplex keratoconjunctivitis - ICD9: V12.49, ICD10: Z86.69 (primary diagnosis) Continue: Current Ophthalmic Meds acyclovir (ZOVIRAX) 400 mg tablet (Taking) Take 1 tablet by mouth once daily. 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 Vitreous floaters of both eyes - ICD9: 379.24, ICD10: H43.393 Stable / Observe 3. Combined forms of age-related cataract, bilateral - ICD9: 366.19, ICD10: H25.813 Not visually significant / Observe Jimmy Borjas, ZAIN I have confirmed and edited as necessary the relevant ophthalmic history, review of systems, surgical history, and ophthalmological examination findings as obtained by the ophthalmic technical staff. I have seen and examined Jeffrey Karissa Arias Jr.. I have discussed the examination findings, diagnosis, and treatment options with Jeffrey Karissa Arias Jr. and/or his family. I have also reviewed and agree with the assessment and plan as stated above and agree with all its relevant components. I gave the patient the opportunity to ask questions about the findings, diagnosis, and treatment options. UA COMPLETE Collected: 12/25/2017 Status: F Source: [facility] 11:14 AM [facility] REPOSITORY TYPE CODE TESTS RESULT OUT OF RANGE REFERENCE UNITS LAB [id number]( Yellow LOINC) Normal UA Color Yellow LAB 17486754( Clear LOINC) Normal UA Clarity Clear LAB 34430585( Negative LOINC) Normal UA Glucose Negative LAB 15308848( Negative LOINC) Normal UA Bili Negative LAB 04544541( Negative LOINC) Normal UA Ketones Negative LAB 39633625( 1.003-1.030 LOINC) Normal UA Spec Grav 1.008 LAB 79590844( 4.6-8.0 LOINC) Normal UA pH 6.0 LAB 81723177( Negative LOINC) Normal UA Protein Negative LAB 80398704( mg/dL LOINC) Normal UA Urobilinogen Negative LAB 43941450( Negative LOINC) Normal UA Nitrite Negative LAB 73833009( Negative LOINC) Normal UA Blood Negative LAB 60088676( Negative LOINC) Normal UA Leuk Est Negative LAB 20421762( 0-3 /HPF LOINC) Normal UA RBC 0-3 LAB 75162396( 0-5 /HPF LOINC) Normal UA WBC 0-5 LAB 19941153( Trace /LPF LOINC) UA Mucous Abnormal Trace Performed By: #### [id number] #### ROGERS Urinalysis Automated Subsection [address] [place] [address] PT Collected: 12/25/2017 Status: F Source: [facility] 9:48 AM [facility] TYPE CODE TESTS RESULT OUT OF RANGE REFERENCE UNITS LAB [id number](LO 1.0-1.2 INC) Normal INR 1.1 Result Comment: INR Recommended Therapeuptic Ranges: Prophylaxis/treatment of DVT and PE?2.0-3.0 Prevention of systemic embolism?.2.0-3.0 Mechanical prosthetic values?2.5-3.5 CRITICAL VALUES?.>4.0 LAB 43910484(LOINC) 11.6-14.6 second(s) Normal 13.3 PT Performed By: #### [id number] #### ROGERS Hematology Automated Subsection [address] [place] [address] PTT Collected: 12/25/2017 Status: F Source: [facility] 9:48 AM [facility] TYPE CODE TESTS RESULT OUT OF RANGE REFERENCE UNITS LAB [id number](LO 23.2-36.4 second(s) INC) Normal PTT 26.2 Performed By: #### [id number] #### ROGERS Hematology Automated [address]section [address] [place] [address] PTT CONTROL RATIO Collected: 12/25/2017 Status: F Source: [facility] 9:48 AM [facility] REPOSITORY Order Comment: Order added by Discern Expert. TYPE CODE TESTS RESULT OUT OF RANGE REFERENCE UNITS LAB [id number](LO 0.8-1.2 ratio INC) Normal PTT Ratio 0.9 Performed By: #### [id number] #### ROGERS Hematology Automated [address]section [address] [place] [address] LACTIC ACID Collected: 12/25/2017 Status: F Source: [facility] 9:48 AM [facility] REPOSITORY TYPE CODE TESTS RESULT OUT OF RANGE REFERENCE UNITS LAB [id number](LO 0.4-2.0 mmol/L INC) Normal Lactic Acid 0.7 Lvl Performed By: #### [id number] #### ROGERS [employer]ink [address] [place] [address] BMP Collected: 12/25/2017 Status: F Source: [facility] 9:48 AM [facility] REPOSITORY TYPE CODE TESTS RESULT OUT OF RANGE REFERENCE UNITS LAB [id number](L 70-99 mg/dL OINC) High Glucose Lvl 106 LAB 93175007(L 6-23 mg/dL OINC) BUN Normal 11 LAB 7442047(LO 0.6-1.3 mg/dL INC) Normal Creatinine 0.9 LAB 42529186(L 5.4-30.0 ratio OINC) Normal BUN/Creat Ratio 12.2 LAB 59224363(L 8.6-10.3 mg/dL OINC) Calcium Normal Lvl 8.8 LAB 68118031(L 136-145 mEq/L OINC) Sodium Normal Lvl 141 LAB 57607303(L 3.5-5.3 mEq/L OINC) Normal Potassium Lvl 3.6 LAB 06328754(L 98-107 mEq/L OINC) High Chloride 109 LAB 44305143(L 21.0-32.0 mEq/L OINC) CO2 Normal 28.0 LAB 07079291(L 6-16 mEq/L OINC) AGAP Normal 8 Performed By: #### [id number] #### ROGERS [employer]ink [address] [place] [address] HEP FUNC PANEL Collected: 12/25/2017 Status: F Source: [facility] 9:48 AM [facility] REPOSITORY TYPE CODE TESTS RESULT OUT OF RANGE REFERENCE UNITS LAB [id number](L 10-52 Int._Unit/L OINC) Normal ALT 16 LAB 33741188(L 9-39 Int._Unit/L OINC) Normal AST 14 LAB 25404760(L 3.4-5.0 G/DL OINC) Normal Albumin Lvl 3.8 LAB 61008345(L 2.0-4.0 G/DL OINC) Normal Globulin 2.0 LAB 63615507(L 1.1-1.9 ratio OINC) Normal A/G Ratio 1.8 LAB 08182969(L 33-136 OINC) Normal Alk Phos 46 LAB 63217677(L .00-.30 mg/dL OINC) Normal Bili Direct .10 LAB 23456443(L OINC) Normal Bili Indirect 0.5 Result Comment: No established ranges available for the Indirect Biliruben. LAB 47099392(LOINC) 0.0-1.2 mg/dL Normal Bili Total 0.6 LAB 84684037(LOINC) 6.4-8.2 gm/dL Low Total Protein 5.9 Performed By: #### [id number] #### ROGERS [facility] [place] [address] EGFR Collected: 12/25/2017 Status: F Source: [facility] 9:48 AM [facility] REPOSITORY Order Comment: Order added by Discern Expert. TYPE CODE TESTS RESULT OUT OF RANGE REFERENCE UNITS LAB 04386502(LO mL/min/1.73 INC) m2 Normal eGFR >60 LAB 88894324(LO mL/min/1.73 INC) m2 Normal eGFR AA >60 Performed By: #### [id number] #### ROGERS [employer] [address] [place] [address] TROPONIN-I Collected: 12/25/2017 Status: F Source: [facility] 9:48 AM [facility] REPOSITORY TYPE CODE TESTS RESULT OUT OF RANGE REFERENCE UNITS LAB 55953819(LO .00-.03 ng/mL INC) Normal .01 Troponin-I Performed By: #### [id number] #### ROGERS [facility] [place] [address] LIPASE LEVEL Collected: 12/25/2017 Status: F Source: [facility] 9:48 AM [facility] REPOSITORY TYPE CODE TESTS RESULT OUT OF RANGE REFERENCE UNITS LAB 72600461(LO 9-82 Int._Unit/L INC) Normal Lipase Lvl 58 Performed By: #### [id number] #### ROGERS [employer] [address] [place] [address] CBC W/ AUTO DIFF Collected: 12/25/2017 Status: F Source: [facility] 9:48 AM [facility] REPOSITORY TYPE CODE TESTS RESULT OUT OF RANGE REFERENCE UNITS LAB 11207606(L 3.6-11.0 E3/mcL OINC) Low WBC 2.3 LAB [id number](L 3.90-6.10 E6/mcL OINC) Normal RBC 4.28 LAB 13654575(L 13.5-18.0 G/DL OINC) Low Hgb 12.7 LAB 41577928(L 42.0-52.0 % OINC) Low Hct 37.9 LAB 05214376(L 11.5-14.5 % OINC) High RDW 16.8 LAB 55930678(L 27.0-31.0 pg OINC) Normal MCH 29.6 LAB 73190652(L 33.0-37.0 G/DL OINC) Normal MCHC 33.5 LAB 44241314(L 78.0-100.0 fL OINC) Normal MCV 88.4 LAB 23871067(L 7.4-11.0 fL OINC) Normal MPV 8.7 LAB [id number](L 130-400 E3/mcL OINC) Normal Platelet 134 Performed By: #### [id number] #### ROGERS [facility] [place] [address] MANUAL DIFF Collected: 12/25/2017 Status: F Source: [facility] 9:48 AM [facility] REPOSITORY Order Comment: Order Added by Discern Expert. TYPE CODE TESTS RESULT OUT OF REFERENCE UNITS RANGE LAB [id number](L 37-75 % OINC) Segs Man Normal 68 LAB [id number](L 0-1 OINC) Band Man Normal 1 LAB [id number](L 14-48 % OINC) Lymph Man Normal 25 LAB 29109045(L 1-11 % OINC) Monocyte Man Normal 3 LAB 26202452(L 0-5 % OINC) Eos Man Normal 3 LAB 53185111(L 0-1 % OINC) Basophil Man Normal 0 LAB 75195775(L OINC) Poikilocytosis Normal 1+ LAB 38660704(L OINC) Anisocytosis Normal 1+ Performed By: #### [id number] #### ROGERS [facility] [place] [address] ZZPLT MORPH Collected: 12/25/2017 Status: F Source: [facility] 9:48 AM [facility] REPOSITORY TYPE CODE TESTS RESULT OUT OF RANGE REFERENCE UNITS LAB [id number](L OINC) Normal Platelet DECREASED Estimate LAB 51772809(L OINC) Normal Platelet Morph NORMAL Performed By: #### [id number] #### ROGERS [employer] [address] [id number] .MANUAL ABS Collected: 12/25/2017 Status: F Source: [facility] 9:48 AM [facility] REPOSITORY Order Comment: Order Added by Discern Expert. TYPE CODE TESTS RESULT OUT OF RANGE REFERENCE UNITS LAB [id number](L 1.4-6.5 10x3/ OINC) Normal Segs Abs Man 1.6 LAB [id number](L 1.2-3.4 10x3/ OINC) Low Lymph Abs Man 0.6 LAB [id number](L 0.0-0.7 10x3/ OINC) Normal [place] Abs Man 0.1 LAB 73492426(L 0.0-0.5 10x3/ OINC) Normal Eos Abs Man 0.1 LAB 72942191(L 0.0-0.2 10x3/ OINC) Normal Basophil Abs 0.0 Man Performed By: #### [id number] #### ROGERS [employer] [address] [place] [address] PROGRESS Observed: 10/14/2017 Status: COMPLETED Source: [place] 10:10 AM [facility] REPOSITORY O ID: [id number] Author: Ok Méndez Service: (none) Author Type: Physician Type: Progress Notes Filed: 10/17/2017 7:47 AM Note Text: PATIENT NAME: Jeffrey Arias. CLINIC NO: [id number]. ATTENDING PHYSICIAN: Ok Méndez MD. ?? DATE OF SERVICE: 10/14/2017? DIAGNOSIS: Chronic myelogenous leukemia, in CR with major molecular response ?? HPI: This is a 67-year-old gentleman with history of hypertension and chronic anemia who presented with atypical chest pain AND leukocytosis. ?? Bone marrow biopsy in January 2014 confirm the diagnosis of CML. His cytogenetic was positive for t( 9,22 ) translocation. ?? BONE MARROW, ASPIRATE SMEARS, CORE BIOPSY AND CLOT SECTION WITH PERIPHERAL BLOOD SMEAR: - MARKEDLY HYPERCELLULAR BONE MARROW (GREATER THAN 90%) WITH GRANULOCYTIC HYPERPLASIA AND LEFT-SHIFT MORPHOLOGICALLY CONSISTENT WITH A MYELOPROLIFERATIVE NEOPLASM. - DECREASED STAINABLE IRON. ?? Current treatment:?Spyrcel 100 mg once daily. ?? interim history: ?Patient is tolerating treatment. He denies chest pain or shortness of breath or palpitation. His blood pressure is normal today. No nausea or vomiting. No fluid retention or edema. Patient denied rash or diarrhea or muscle pain. He has no fever, chills or night sweat. He has no early satiety or pruritus. He has occasional rectal bleeding from hemorrhoids, but no melanoma abdominal pain or bloating. his last colonoscopy was 3 years ago. ?? REVIEW OF SYSTEMS: CONSTITUTIONAL: No fevers, chills, nightsweats, unintended weight loss HEENT: Denies frequent or severe heaches, nasal congestion/sinus symptoms, problematic allergy problems. EYES: No diplopia or blurry vision. CARDIOVASCULAR: No chest pain, dyspnea, palpitations, orthopnea, PND, ankle edema. PULM: No dyspnea, unexplained cough. GI: No dysphagia/odynophagia, problematic reflux, constipation, diarrhea, changes in stool habits, hematochezia, melena. : No new urinary complaints, including dysuria, gross hematuria or pyuria. NEURO: No new balance problems, peripheral weakness/paresthesias or numbness of concern. MUSC-SKEL: No new joint pain, swelling, or erythema. PSY: No concerns regarding depression, anxiety or panic. INTEGUMENTARY: No new skin changes (rash, new or changing mole, new growth) ?? PHYSICAL EXAMINATION: A 66-year-old gentleman in no acute distress performance status 100% BP 137/74 Pulse 79 Temp (Src) 98.6 (Oral) Wt 240 lb 8 oz (109.1kg) HEENT: Head is normocephalic, atraumatic. Sclerae white, conjunctivae pink. PEERL. EOMs are intact. Oropharynx is benign. LYMPHATICS: There is no palpable adenopathy in the neck, supraclavicular region, axillae, or groin. LUNGS: Lungs are clear to percussion and auscultation. HEART: Heart is normal with grade 2/6 systolic murmur?murmurs?left sternal border, no gallops, or rubs. ABDOMEN: Obese, Soft and nontender without organomegaly. No masses can be palpated. EXTREMITIES: Are without edema. NEUROLOGIC: Exam is physiologic ?? LABORATORY DATA: Component Latest Ref Rng AND Units 10/06/2017 WBC, [place] 3.70 - 11.00 k/uL 2.08 (L) RBC, [place] 4.20 - 6.00 m/uL 4.21 Hemoglobin, [place] 13.0 - 17.0 g/dL 11.1 (L) Hematocrit, [place] 39.0 - 51.0 % 35.9 (L) MCV, [place] 80.0 - 100.0 fL 85.3 MCH, [place] 26.0 - 34.0 pg 26.4 MCHC, [place] 30.5 - 36.0 g/dL 30.9 RDW, [place] 11.5 - 15.0 % 17.2 (H) Platelet Cnt, [place] 150 - 400 k/uL 151 MPV, [place] 9.0 - 12.7 fL 10.5 Absol Gran Count 1.45 - 7.50 k/uL 1.19 (L) Component Latest Ref Rng AND Units 10/06/2017 Protein, Total 6.3 - 8.0 g/dL 6.4 Albumin 3.9 - 4.9 g/dL 4.1 Calcium 8.5 - 10.2 mg/dL 9.3 Bilirubin, Total 0.2 - 1.3 mg/dL 0.3 Alkaline Phosphatase 36 - 108 U/L 44 AST 14 - 40 U/L 24 Glucose 74 - 99 mg/dL 114 (H) BUN 9 - 24 mg/dL 13 Creatinine 0.73 - 1.22 mg/dL 1.08 Sodium 136 - 144 mmol/L 143 Potassium 3.7 - 5.1 mmol/L 4.0 Chloride 97 - 105 mmol/L 99 CO2 22 - 30 mmol/L 25 Anion Gap 9 - 18 mmol/L 19 (H) ALT 10 - 54 U/L 19 eGFR- >60 eGFR-All Other Races . >60 LD 135 - 225 U/L 203 Uric Acid 4.0 - 8.1 mg/dL 5.2 ? Quantitative Result (BCRPCR) CCM (NOTE) Comment: Normalized copy number (%BCRABL/ABL):0.06 International Scale (%IS BCRABL/ABL):0.03 Interpretation (BCRPCR) CCM p210 BCR/ABL transcripts are detected and are quantified at <0.1% on the International Scale. This result indicates the presence of a major molecular response. Comment: (REF: Leukemia 2009, 23:1957-63.) ? ASSESSMENT:?67-year-old gentleman with chronic myeloid leukemia,?CR with major molecular response. ??Patient is asymptomatic despite mild anemia and Leukopenia. He is?tolerating Spyrcel with no side effects. ?? PLAN: Continue Spyrcel 100 mg once daily for treatment of CML. Start labn-hop-sfyxomm iron to ferrous sulfate 325mg once daily for anemia. Repeat CBC, CMP, LDH, Uric acid,and quantitative BCR/ABL OV in 6 months.?? Ok Méndez MD. ? Cc: Dr. Lucas Barnett CNOVSP Observed: 10/14/2017 Status: COMPLETED Source: [place] 9:40 AM [facility] REPOSITORY Visit (SP) Office (HEMAWS) JEFFREY ARIAS JR. ([id number]) 1950 M Date Time Provider Department 10/14/17 9:40 AM OK MÉNDEZ During your visit today, we recorded the following information about you: Temperature Pulse Blood pressure Weight 98.6 degrees 79/minute 137/74 109.1 kg Ivy Zendejas LPN 10/14/2017 10:05 AM Signed Est patient. Six month office visit. Discuss recent labs. Ivy Méndez MD 10/14/2017 10:09 AM Signed Start OTC iron once daily for anemia Ok Méndez MD 10/17/2017 7:47 AM Signed PATIENT NAME: Jeffrey Arias. CLINIC NO: [id number]. ATTENDING PHYSICIAN: Ok Méndez MD. ?? DATE OF SERVICE: 10/14/2017? DIAGNOSIS: Chronic myelogenous leukemia, in CR with major molecular response ?? HPI: This is a 67-year-old gentleman with history of hypertension and chronic anemia who presented with atypical chest pain AND leukocytosis. ?? Bone marrow biopsy in January 2014 confirm the diagnosis of CML. His cytogenetic was positive for t( 9,22 ) translocation. ?? BONE MARROW, ASPIRATE SMEARS, CORE BIOPSY AND CLOT SECTION WITH PERIPHERAL BLOOD SMEAR: - MARKEDLY HYPERCELLULAR BONE MARROW (GREATER THAN 90%) WITH GRANULOCYTIC HYPERPLASIA AND LEFT-SHIFT MORPHOLOGICALLY CONSISTENT WITH A MYELOPROLIFERATIVE NEOPLASM. - DECREASED STAINABLE IRON. ?? Current treatment:?Spyrcel 100 mg once daily. ?? interim history: ?Patient is tolerating treatment. He denies chest pain or shortness of breath or palpitation. His blood pressure is normal today. No nausea or vomiting. No fluid retention or edema. Patient denied rash or diarrhea or muscle pain. He has no fever, chills or night sweat. He has no early satiety or pruritus. He has occasional rectal bleeding from hemorrhoids, but no melanoma abdominal pain or bloating. his last colonoscopy was 3 years ago. ?? REVIEW OF SYSTEMS: CONSTITUTIONAL: No fevers, chills, nightsweats, unintended weight loss HEENT: Denies frequent or severe heaches, nasal congestion/sinus symptoms, problematic allergy problems. EYES: No diplopia or blurry vision. CARDIOVASCULAR: No chest pain, dyspnea, palpitations, orthopnea, PND, ankle edema. PULM: No dyspnea, unexplained cough. GI: No dysphagia/odynophagia, problematic reflux, constipation, diarrhea, changes in stool habits, hematochezia, melena. : No new urinary complaints, including dysuria, gross hematuria or pyuria. NEURO: No new balance problems, peripheral weakness/paresthesias or numbness of concern. MUSC-SKEL: No new joint pain, swelling, or erythema. PSY: No concerns regarding depression, anxiety or panic. INTEGUMENTARY: No new skin changes (rash, new or changing mole, new growth) ?? PHYSICAL EXAMINATION: A 66-year-old gentleman in no acute distress performance status 100% BP 137/74 Pulse 79 Temp (Src) 98.6 (Oral) Wt 240 lb 8 oz (109.1kg) HEENT: Head is normocephalic, atraumatic. Sclerae white, conjunctivae pink. PEERL. EOMs are intact. Oropharynx is benign. LYMPHATICS: There is no palpable adenopathy in the neck, supraclavicular region, axillae, or groin. LUNGS: Lungs are clear to percussion and auscultation. HEART: Heart is normal with grade 2/6 systolic murmur?murmurs?left sternal border, no gallops, or rubs. ABDOMEN: Obese, Soft and nontender without organomegaly. No masses can be palpated. EXTREMITIES: Are without edema. NEUROLOGIC: Exam is physiologic ?? LABORATORY DATA: Component Latest Ref Rng AND Units 10/06/2017 WBC, [place] 3.70 - 11.00 k/uL 2.08 (L) RBC, [place] 4.20 - 6.00 m/uL 4.21 Hemoglobin, [place] 13.0 - 17.0 g/dL 11.1 (L) Hematocrit, [place] 39.0 - 51.0 % 35.9 (L) MCV, [place] 80.0 - 100.0 fL 85.3 MCH, [place] 26.0 - 34.0 pg 26.4 MCHC, [place] 30.5 - 36.0 g/dL 30.9 RDW, [place] 11.5 - 15.0 % 17.2 (H) Platelet Cnt, [place] 150 - 400 k/uL 151 MPV, [place] 9.0 - 12.7 fL 10.5 Absol Gran Count 1.45 - 7.50 k/uL 1.19 (L) Component Latest Ref Rng AND Units 10/06/2017 Protein, Total 6.3 - 8.0 g/dL 6.4 Albumin 3.9 - 4.9 g/dL 4.1 Calcium 8.5 - 10.2 mg/dL 9.3 Bilirubin, Total 0.2 - 1.3 mg/dL 0.3 Alkaline Phosphatase 36 - 108 U/L 44 AST 14 - 40 U/L 24 Glucose 74 - 99 mg/dL 114 (H) BUN 9 - 24 mg/dL 13 Creatinine 0.73 - 1.22 mg/dL 1.08 Sodium 136 - 144 mmol/L 143 Potassium 3.7 - 5.1 mmol/L 4.0 Chloride 97 - 105 mmol/L 99 CO2 22 - 30 mmol/L 25 Anion Gap 9 - 18 mmol/L 19 (H) ALT 10 - 54 U/L 19 eGFR- >60 eGFR-All Other Races . >60 LD 135 - 225 U/L 203 Uric Acid 4.0 - 8.1 mg/dL 5.2 ? Quantitative Result (BCRPCR) CCM (NOTE) Comment: Normalized copy number (%BCRABL/ABL):0.06 International Scale (%IS BCRABL/ABL):0.03 Interpretation (BCRPCR) CCM p210 BCR/ABL transcripts are detected and are quantified at <0.1% on the International Scale. This result indicates the presence of a major molecular response. Comment: (REF: Leukemia 2009, 23:9967-02.) ? ASSESSMENT:?67-year-old gentleman with chronic myeloid leukemia,?CR with major molecular response. ??Patient is asymptomatic despite mild anemia and Leukopenia. He is?tolerating Spyrcel with no side effects. ?? PLAN: Continue Spyrcel 100 mg once daily for treatment of CML. Start uctq-yuv-epbilqu iron to ferrous sulfate 325mg once daily for anemia. Repeat CBC, CMP, LDH, Uric acid,and quantitative BCR/ABL OV in 6 months.?? Ok Méndez MD. ? Cc: Dr. Lucas Barnett Referring Provider: OK MÉNDEZ [[id number]] Allergies As of Date: 10/14/2017 (No Known Allergies) Date Reviewed: 10/14/2017 Reviewed by: Ivy Zendejas LPN - Fully Assessed Reason for Visit: Established Patient [175] Primary Visit Diagnosis:CML in remission (HCC) [C92.11] Other Visit Diagnosis:Anemia, unspecified type [D64.9] Order(s):ferrous sulfate (FEROSUL) 325 mg (65 mg iron) tabletTake 1 tablet by mouth daily with breakfast.Disp: 100 tabletRfl: 1 Level of Service: EST PATIENT VISIT LEVEL 3 [[id number]] Disposition: Return in about 6 months (around 04/16/2018). 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 Six month office visit. Discuss recent labs. Ivy Zendejas LPN Encounter Status:Closed by OK MÉNDEZ MD on 10/17/17 BCR/ABL P210 QUANT Collected: 10/06/2017 Status: F Source: [place] 9:43 AM [facility] REPOSITORY TYPE CODE TESTS RESULT OUT OF REFERENCE UNITS RANGE LAB MRDTYP Blood Specimen Type BCRPCR LAB MRDRES p210 BCRPCR Qual BCR/ABL Result transcripts are detected. (See interpretation.) LAB MRDRQT (NOTE) BCRPCR Quant Result Result Comment: Normalized copy number (%BCRABL/ABL):0.06 International Scale (%IS BCRABL/ABL):0.03 LAB MRDINT p210 BCR/ABL Interp for transcripts are BCRPCR detected and are quantified at <0.1% on the International Scale. This result indicates the presence of a major molecular response. Result Comment: (REF: Leukemia 2008, 23:1957-63.) LAB MRDMET This Methodology sample was analyzed for (BCRPCR) the presence of p210 (b2a2 or b3a2) BCR/ABL transcripts resulting from a t(9:22)(q34:q11) translocation, using cDNA prepared from RNA by reverse transcriptase polymerase chain reaction (RTPCR). Result Comment: Real time RTPCR quantification of BCR/ABL and ABL transcripts was performed in duplicate to calculate a mean normalized copy number percentage ratio and results were converted to the Int ernational Scale using reference standards ([employer], Madeleine, Marielle). This assay successfully detects BCR/ABL transcripts in RNA extracted from one neoplastic cell suspended in 100,000 buffy coat cells from a normal individual. This assay will not detect BCR/ABL transcrip ts produced by unusual variant breakpoints, which are found in <5% of patients of chronic myeloid leukemia. This test was developed and its performance characteristics determined by [facility]van Delac[facility] [place] ([facility]). It has not been cleared or approved by the FDA. -[facility] is regulated under CLIA as qualified to perform high-complexity testing. This test is used for clinical purposes. It should not be regarded as investigational or for research. LAB MRDREV Reviewed by Reviewed by (BCRPCR) Clyde Pickens M.D., Ph.D ([id number]) Performed By: #### BCRPCR #### [place] [id number] [place] [address] THERESE ABS GR + CBC Collected: 10/06/2017 Status: F Source: [place] 9:42 [facility] REPOSITORY TYPE CODE TESTS RESULT OUT OF REFERENCE UNITS RANGE LAB WWBC 3.70-11.00 k/uL Low [place] WBC 2.08 LAB WRBC 4.20-6.00 m/uL [place] RBC 4.21 LAB WHGB 13.0-17.0 g/dL Low [place] Hemoglobin 11.1 LAB WHCT 39.0-51.0 % Low [place] Hematocrit 35.9 LAB WMCV 80.0-100.0 fL [place] MCV 85.3 LAB WMCH 26.0-34.0 pg [place] MCH 26.4 LAB WMCHC 30.5-36.0 g/dL [place] MCHC 30.9 LAB WRDW 11.5-15.0 % [place] High RDW 17.2 LAB WPLT 150-400 k/uL [place] Platelet Cnt 151 LAB WMPV 9.0-12.7 fL [place] MPV 10.5 Result Comment: Test performed at: [facility], [address] [place] [address]. LAB ABGRAN 1.45-7.50 k/uL Low Absol 1.19 Gran Count COMP METABOLIC PANEL Collected: 10/06/2017 Status: F Source: [place] 9:42 [facility] REPOSITORY TYPE CODE TESTS RESULT OUT OF REFERENCE UNITS RANGE LAB TP 6.3-8.0 g/dL Protein, Total 6.4 LAB ALB 3.9-4.9 g/dL Albumin 4.1 LAB CA 8.5-10.2 mg/dL Calcium, Total 9.3 LAB TBIL 0.2-1.3 mg/dL Bilirubin, Total 0.3 LAB ALKP 36-108 U/L Alkaline Phosphatase 44 LAB AST 14-40 U/L AST 24 LAB GLU 74-99 mg/dL Glucose High 114 Result Comment: The [place] [employer] (ADA) provides guidance for cutoff values for fasting glucose and random glucose. The ADA defines fasting as no caloric intake for at least 8 hours. Fas ting plasma glucose results between 100 to 125 mg/dL indicate increased risk for diabetes (prediabetes). Fasting plasma glucose results greater than or equal to 126 mg/dL meet the criteria for diagnosis of diabetes. In the absence of unequivocal hyperglycemia, results should be confirmed by repeat testing. In a patient with classic symptoms of hyperglycemia or hyperglycemic crisis, random plasma glucose results greater than or equal to 200 mg/dL meet the criteria for diagnosis of diabetes. Reference: Standards of Medical Care in Diabetes 2016, [place] [employer] Association. Diabetes Care. 2016.39(Suppl 1). LAB BUN 9-24 mg/dL BUN 13 LAB CRET 0.73-1.22 mg/dL Creatinine 1.08 LAB NA 136-144 mmol/L Sodium 143 LAB K 3.7-5.1 mmol/L Potassium 4.0 LAB CL 97-105 mmol/L Chloride 99 LAB CO2 22-30 mmol/L CO2 25 LAB AGAP 9-18 mmol/L Anion Gap High 19 LAB ALT 10-54 U/L ALT 19 LAB GFRAA eGFR- Amer. >60 LAB GFRNAA . eGFR-All Other Races >60 Result Comment: eGFR (Estimated GFR) Units of measure: mL/min/1.73 meters squared eGFR is derived from the reexpressed MDRD Study equation using the following parameters: serum creatinine, age, gender and race. The creatinine assay has been calibrated to be traceable to IDMS. An eGFR <60 mL/min/1.73m2 for >3 months is consistent with chronic kidney disease. Refer to KDOQI guidelines for clinical interpretation. In patients with unstable renal function, e.g. those with acute kidney injury, the eGFR may not accurately reflect actual GFR. Performed By: #### CMP, URIC, LD6 #### [facility] [email or web address] [address] [place], [place] [address] URIC ACID Collected: 10/06/2017 Status: F Source: [place] 9:42 AM [facility] REPOSITORY TYPE CODE TESTS RESULT OUT OF RANGE REFERENCE UNITS LAB URIC 4.0-8.1 mg/dL Uric Acid 5.2 Performed By: #### CMP, URIC, LD6 #### [facility] [address] [place], [place] [address] LD Collected: 10/06/2017 Status: F Source: [facility] 9:42 AM [facility] REPOSITORY TYPE CODE TESTS RESULT OUT OF RANGE REFERENCE UNITS LAB LD 135-225 U/L LD 203 Performed By: #### CMP, URIC, LD6 #### [facility] [address] [place] [id number] CNCO Observed: 07/14/2017 Status: COMPLETED Source: [place] 12:00 AM [facility] REPOSITORY Letter Text [address] [place] [address] [phone] 07/14/2017 Jeffrey Arias [address] [facility] [address] Dear Jacy Arias: Due to a change in the provider's schedule, it has been necessary to reschedule your appointment. Enclosed please find a new appointment reminder that will replace the one previously sent to you. If this appointment is not convenient for you, please contact our office at [phone]. Thank you for choosing the [facility] as your Healthcare Provider. Sincerely, Appointment Office CMP Collected: 07/06/2017 Status: F Source: [facility] 7:01 AM [facility] REPOSITORY TYPE CODE TESTS RESULT OUT OF RANGE REFERENCE UNITS LAB [id number](L 70-99 mg/dL OINC) Glucose Normal Lvl 99 LAB 09710813(L 8.4-10.2 mg/dL OINC) Calcium Normal Lvl 8.9 LAB 37958180(L 136-145 mEq/L OINC) Sodium Normal Lvl 139 LAB 99646172(L 3.5-5.1 mEq/L OINC) Normal Potassium Lvl 3.7 LAB 69335993(L 98-107 mEq/L OINC) Chloride Normal 106 LAB 89976520(L 24.0-30.0 mEq/L OINC) CO2 Normal 25.7 LAB 01928295(L 7-18 mg/dL OINC) High BUN 20 LAB 1391946(LO 0.6-1.3 mg/dL INC) Normal Creatinine 1.1 LAB 71507699(L 42-121 Int._Unit/ OINC) L Alk Phos Normal 43 LAB 53489495(L 0.2-1.0 mg/dL OINC) Bili Normal Total 0.5 LAB 16587642(L 3.2-5.0 G/DL OINC) Albumin Normal Lvl 4.0 LAB 57521493(L 6.4-8.3 G/DL OINC) Total Normal Protein 6.9 LAB 54965029(L 10-40 Int._Unit/ OINC) L ALT Normal 18 LAB 73015137(L 10-42 Int._Unit/ OINC) L AST Normal 19 LAB 66655888(L 5.4-30.0 ratio OINC) Normal BUN/Creat Ratio 18.2 LAB 27675654(L 2.0-4.0 G/DL OINC) Globulin Normal 2.9 LAB 82578443(L 1.1-1.9 ratio OINC) A/G Normal Ratio 1.4 Performed By: #### [id number] #### [place] [address] CBC W/ AUTO DIFF Collected: 07/06/2017 Status: F Source: [facility] 7:01 AM [facility] REPOSITORY TYPE CODE TESTS RESULT OUT OF RANGE REFERENCE UNITS LAB 83827417(L 3.6-11.0 E3/mcL OINC) Low WBC 2.6 LAB 59245018(L 3.90-6.10 E6/mcL OINC) Normal RBC 4.14 LAB 73358245(L 13.5-18.0 G/DL OINC) Low Hgb 10.9 LAB 04218822(L 42.0-52.0 % OINC) Low Hct 33.5 LAB 65584100(L 11.5-14.5 % OINC) High RDW 15.9 LAB 35345024(L 27.0-31.0 pg OINC) Low MCH 26.4 LAB 58255146(L 33.0-37.0 G/DL OINC) Low MCHC 32.6 LAB 55734689(L 78.0-100.0 fL OINC) Normal MCV 80.9 LAB 20488940(L 7.4-11.0 fL OINC) Normal MPV 8.6 LAB 08604904(L 130-400 E3/mcL OINC) Normal Platelet 198 Performed By: #### [id number] #### [facility] [place] [address] MANUAL DIFF Collected: 07/06/2017 Status: F Source: [facility] 7:01 [facility] REPOSITORY Order Comment: Order Added by Discern Expert. TYPE CODE TESTS RESULT OUT OF REFERENCE UNITS RANGE LAB 58875229( 37-75 % LOINC) Segs Man 56 Normal LAB 93778846( 14-48 % LOINC) Lymph Man 35 Normal LAB 08371735( 1-11 % LOINC) Monocyte 6 Normal Man LAB 13696611( 0-5 % LOINC) Eos Man 2 Normal LAB 78363251( 0-1 % LOINC) Basophil 1 Normal Man LAB 13199850( LOINC) RBC Morph SEE Normal MORPHOLOGY LAB 27601181( LOINC) 1+ Normal Anisocytosis Performed By: #### [id number] #### [facility] [place] [address] ZZPLT MORPH Collected: 07/06/2017 Status: F Source: [facility] 7:01 [facility] TYPE CODE TESTS RESULT OUT OF RANGE REFERENCE UNITS LAB 76712826(L OINC) Normal Platelet NORMAL Estimate LAB 05293491(L OINC) Normal Platelet Morph ENLARGED Performed By: #### [id number] #### [facility] [place] [address] .MANUAL ABS Collected: 07/06/2017 Status: F Source: [facility] 7:01 [facility] REPOSITORY TYPE CODE TESTS RESULT OUT OF RANGE REFERENCE UNITS LAB 19985232(L 1.4-6.5 10x3/ OINC) Normal Segs Abs Man 1.5 LAB 13831570(L 1.2-3.4 10x3/ OINC) Low Lymph Abs Man 0.9 LAB 88428802(L 0.0-0.7 10x3/ OINC) Normal [place] Abs Man 0.2 LAB 79518645(L 0.0-0.5 10x3/ OINC) Normal Eos Abs Man 0.1 LAB 47812423(L 0.0-0.2 10x3/ OINC) Normal Basophil Abs 0.0 Man Performed By: #### [id number] #### [facility] [place] [address] EGFR Collected: 07/06/2017 Status: F Source: [facility] 7:01 [facility] REPOSITORY Order Comment: Order added by Discern Expert. TYPE CODE TESTS RESULT OUT OF RANGE REFERENCE UNITS LAB 77362026(LO mL/min/1.73 INC) m2 Normal eGFR >60 LAB 19968236(LO mL/min/1.73 INC) m2 Normal eGFR AA >60 Performed By: #### [id number] #### [place] [facility] [address] [place] [address] LIPID PROFILE Collected: 07/06/2017 Status: F Source: [facility] [address] [place] [address] REPOSITORY TYPE CODE TESTS RESULT OUT OF RANGE REFERENCE UNITS LAB 54724548(LO 50-200 mg/dL INC) High Chol 206 Result Comment: TOTAL CHOLEESTEROL: <200 NORMAL 200 - 239 BORDERLINE HIGH >240 HIGH LAB 59415110(LOINC) >=41 mg/dL Normal HDL 50 LAB 68895460(LOINC) 0-130 mg/dL High LDL 139 Result Comment: <100 OPTIMAL 100-129 NEAR / ABOVE OPTIMAL 130-159 BORDERLINE HIGH 160-189 HIGH >190 VERY HIGH CALC LDL NOT VALID WHEN TRIGLYCERIDE IS >400 MG/DL LAB 10069657(LOINC) 35-150 mg/dL Normal Trig 86 Result Comment: <150 NORMAL 150-199 BORDERLINE HIGH 200-499 HIGH >500 VERY HIGH LAB 63452858(LOINC) Normal VLDL 17 Performed By: #### [id number] #### [place] [employer] [address] [place] [address] HGBA1C Collected: 07/06/2017 Status: F Source: [facility] 7:01 [facility] REPOSITORY TYPE CODE TESTS RESULT OUT OF RANGE REFERENCE UNITS LAB 266370582( 4.0-6.3 % LOINC) Normal Hemoglobin A1c 5.2 Performed By: #### [id number] #### [facility] Chemistry Manual Subsection [address] [place] [id number] PROGRESS Observed: 07/01/2017 Status: COMPLETED Source: [place] 8:51 AM [facility] REPOSITORY HNO ID: [id number] Author: Jimmy (Od) Evelyn Service: (none) Author Type: ENCHILADA MAKER Type: Progress Notes Filed: 07/01/2017 8:55 AM Note Text: ASSESSMENT/PLAN: 1. Vitreous floaters of both eyes - ICD9: 379.24, ICD10: H43.393 (primary diagnosis) Patient was given both written and verbal information on flashes and floaters. Patient was instructed to call the office ([phone]) immediately upon noticing flashes of light, increase in floaters, or changes in vision. 2. 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 Follow up with primary care physician for appropriate blood-work Jimmy Borjas, ZAIN I have confirmed and edited as necessary the relevant ophthalmic history, review of systems, surgical history, and ophthalmological examination findings as obtained by the ophthalmic technical staff. I have seen and examined Jeffrey Arias. I have discussed the examination findings, diagnosis, and treatment options with Jeffrey Arias and/or his family. I have also reviewed and agree with the assessment and plan as stated above and agree with all its relevant components. I gave the patient the opportunity to ask questions about the findings, diagnosis, and treatment options. ALLERGIES ALLERGIES DATE TYPE / CODE NAME / CODE REACTION SEVERITY SOURCE 02/21/2018 Drug No Known Unknown [facility] Allergy/416 Allergies/V21610 Hospital 794939(SNOM 0388(RXNORM) Repository ED CT) Drug NO KNOWN [facility] Class/72513 ALLERGIES Other [place] 1003(SNOMED Repository CT) Drug/276165 No Known Jain 003(SNOMED Allergies [facility] Rep[facility] Drug/377063 Lipitor dark urine per Jain 003(SNOMED patient [facility]) System Repository Drug/863611 Crestor leg swelling Jain 003(SNOMED [facility]) [facility] Repository ENCOUNTERS ENCOUNTERS ADMIT/DISCHARGE ACCOUNT NUMBER ADMITTING ENCOUNTER LOCATION SOURCE CLASS 02/22/2018/02/23/20 [id number] Ambulatory [address] ding:SDCRoom Repository : AC17 02/21/2018 [id number] JENNIFER ARRIETA Ambulatory [facility] Other [place] Repository 02/16/2018/02/21/20 [id number] Ambulatory [address] Repository 02/03/2018/02/08/20 [id number] Ambulatory [address] Repository 01/18/2018/01/19/20 [id number] Lucas Barnett [address] ding:[place] Repository nt MedicRoom: Room 3 12/30/2017/01/03/20 [id number] Ambulatory [address] Repository 12/28/2017/12/29/19 [id number] Lucas Barnett [address] ding:[place] Repository nt MedicRoom: Room 2 12/25/2017/12/26/[id number] ding:[facility] EDRoom: Repository 12/25/[id number] Repository 10/14/2017/10/18/19 [id number] Ambulatory [address] Repository 10/06/2017/10/08/19 [id number] Ambulatory [address] Repository 07/06/2017/07/07/19 [id number] Lucas Barnett [address] ding:[facility] Repository 07/01/2017/07/05/19 [id number] Ambulatory [address] Repository 06/17/2017/06/18/[id number] ding:[place] Repository nt MedicRoom: Room 2 PAYERS PAYERS ENCOUNTER GUARANTOR PAYER SUBSCRIBER SOURCE 02/22/2018 JEFFREY Saleh [id number] RT Insurance:[address] Number: [facility] [id number]: (013) [id number] Repository [phone] (HP) Date:[id number] [id number]: 02/22/2018 Secondary JEFFREY L [place] Insurance:MEDICARE ACKERDOB: Community PART A BPolicy [id number] Number: Repository [id number] Date:2018-02-21 02/22/2018 Tertiary NOT GIVENUNK [place] Insurance:SELF PAY [facility]: Effective Repository Date:2018-02-21 01/18/2018 JEFFREY L Primary MICK S Jain ACKERDOB: Insurance:[birth year] ACKERDOB: [facility] ANTHEMPolicy Number: [id number] System [place] [id number] Effective [address] Date:2017-12-28 - [place] [id number]: [id number] [phone]: Name:[id number] O () [address] ()Tel: [phone]: [phone] 12/28/2017 JEFFREY L Primary MICK S Jain ACKERDOB: Insurance:[birth year] ACKERDOB: [facility] ANTHEMPolicy Number: [id number] System [place] [id number] Effective [address] Date:2017-12-28 - [place] [id number]: [id number] [address]Tel: Name:CD:[id number] O () [address] ()Tel: [phone]: [phone] 12/25/2017 JEFFREY L Primary MICK S Jain ACKERDOB: Insurance:ANTHEMPolic [facility]OB[facility] y Number: Effective [id number] System [place] [id number] Date:2017-12-[address] [id number] [place] [id number]: Name:Bruce CABRAL [id number]: [id number], [place] (HP) [id number]: [phone]) (HP) [phone] (WP) 12/25/2017 Secondary JEFFREY Stone Insurance:MedicarePol ACKERDOB: [facility] icy Number: Effective [id number] System Date:2017-12-[address] [id number], [place] Name:CD:[id number] [id number]: [id number], [place] [id number]: [phone] (HP) [phone] (WP) 12/25/2017 PIQUA ACKERDOB: [facility] Insurance:AnthemPolic ACKERDOB: [place] [address] y Number: [id number] [place], [place] [id number]: Date:Plan Name:Health () 07/06/2017 [facility] ACKERDOB: Insurance:ANTHEMPolic ACKERDOB: [facility] y Number: Effective [id number] System [place] [id number] Date:2017-07-[address] [id number] [address]Wep: Name:Bruce CABRAL [phone]: [id number] PATEL (HP) [id number]: [phone] (HP) [phone] (WP) 06/17/2017 JEFFREY OCAMPOJOLYNN Stone ACKERDOB: Insurance:[birth year] ACKERDOB: [facility] [id number] ANTHEMPolicy Number: [id number] System [facility] Effective 7 [facility] Repository [address], [place] Date:2017-06-17 [address], [place] [id number]: [id number] [id number]: Name:CD:[id number] O () [address], [place] ()Tel: [phone]: [phone]
== END 2018-02-22 15:02 | disposition home or self-care (01) ==
LOC: SDC 08:14 → AC 08:16
PROVIDERS: Family Provider Family Medicine; PCP Family Medicine; Referring Provider Surgery; Visit Provider Surgery
PROC: (CPT 46260; principal; 2018-02-22 10:20)
DX: K64.2 Third degree hemorrhoids (principal); K64.4 Residual hemorrhoidal skin tags; E78.00 Pure hypercholesterolemia, unspecified; D64.9 Anemia, unspecified; C92.10 Chronic myeloid leukemia, BCR/ABL-positive, not having achieved remission; I10 Essential (primary) hypertension; Z87.442 Personal history of urinary calculi
CPT/HCPCS: 46260; 88304; J7050; J7120; J2405